=== PATIENT | male | born 1930 | race Caucasian/White ===

== ENCOUNTER 2018-02-02 19:17 | Emergency (ER) | payer MEDICARE, BC ==
[2018-02-02 21:24] LABS: ADD MAN DIFF? NO
[2018-02-02 21:28] LABS: BASOPHIL # 0.1 10^3/ul (0.0-0.1); BASOPHILS % 1.2 % (0.0-2.0); HEMATOCRIT 29.3 % (42.0-52.0); HEMOGLOBIN 9.4 g/dl (14.0-18.0); LYMPHOCYTES % 23.7 % (15.0-51.0); MEAN CORPUSCULAR HEMOGLOBIN 32.2 pg (29.0-33.0); MEAN CORPUSCULAR HGB CONC 32.1 g/dl (32.0-37.0); MEAN CORPUSCULAR VOLUME 100.3 fl (82.0-101.0); MEAN PLATELET VOLUME 9.9 fl (7.4-10.4); MONOCYTE # 0.7 10^3/ul (0.3-0.9); MONOCYTES % 17.3 % (0.0-11.0); NEUTROPHIL # 2.4 10^3/ul (1.6-7.5); NEUTROPHILS % 57.1 % (39.0-77.0); PLATELET COUNT 256 10^3/UL (140-415); RED BLOOD COUNT 2.92 10^6/ul (4.70-6.10); RED CELL DISTRIBUTION WIDTH 15.6 % (11.5-14.5)
[2018-02-02 21:28] LABS: WHITE BLOOD COUNT 4.2 10^3/ul (4.8-10.8)
[2018-02-02 21:46] LABS: ANION GAP 18 (8-16); BLOOD UREA NITROGEN 56 mg/dl (7-20); CARBON DIOXIDE 16 mmol/L (21-31); CHLORIDE 112 mmol/L (97-110); CREATININE 4.99 mg/dl (0.61-1.24); GLUCOSE 101 mg/dl (70-220); POTASSIUM 5.4 mmol/L (3.5-5.1); SODIUM 141 mmol/L (135-144)
[2018-02-02 21:58] LABS: TROPONIN-I 0.035 ng/ml (0.00-0.12)
[2018-02-02] MEDS: NA POLYST SULFON 15 GM/60 ML BTL PO (22:12)
== END 2018-02-02 22:19 | disposition home or self-care (01) ==
LOC: E/R 19:17
DX: N18.9 Chronic kidney disease, unspecified (principal); I12.9 Hypertensive chronic kidney disease with stage 1 through stage 4 chronic kidney disease, or unspecified chronic kidney disease; I25.10 Atherosclerotic heart disease of native coronary artery without angina pectoris; Z98.61 Coronary angioplasty status; Z87.891 Personal history of nicotine dependence
CPT/HCPCS: 80048; 84484; 85025; 93005; 99284-25

== ENCOUNTER 2018-03-09 13:02 | Emergency (ER) | payer MEDICARE, BC ==
[2018-03-09] MEDS: SODIUM CHLORIDE 0.9% 1L BAG IV* (13:33)
[2018-03-09 13:39] LABS: ADD MAN DIFF? NO
[2018-03-09 13:41] LABS: WHITE BLOOD COUNT 8.7 10^3/ul (4.8-10.8)
[2018-03-09 13:41] LABS: ABNORMAL IP MESSAGE 1; BASOPHILS % 0.5 % (0.0-2.0); EOSINOPHILS % 0.2 % (0.0-7.0); HEMATOCRIT 36.1 % (42.0-52.0); HEMOGLOBIN 11.7 g/dl (14.0-18.0); LYMPHOCYTES # 0.6 10^3/ul (0.8-2.9); LYMPHOCYTES % 6.5 % (15.0-51.0); MEAN CORPUSCULAR HEMOGLOBIN 32.5 pg (29.0-33.0); MEAN CORPUSCULAR HGB CONC 32.4 g/dl (32.0-37.0); MEAN CORPUSCULAR VOLUME 100.3 fl (82.0-101.0); MEAN PLATELET VOLUME 10.1 fl (7.4-10.4); MONOCYTE # 0.6 10^3/ul (0.3-0.9); MONOCYTES % 7.3 % (0.0-11.0); NEUTROPHIL # 7.3 10^3/ul (1.6-7.5); NEUTROPHILS % 84.2 % (39.0-77.0); PLATELET COUNT 226 10^3/UL (140-415); POSITIVE DIFF @See below; RED CELL DISTRIBUTION WIDTH 14.4 % (11.5-14.5)
[2018-03-09 13:59] LABS: ALANINE AMINOTRANSFERASE 26 IU/L (13-69); ALBUMIN 3.2 g/dl (3.3-4.9); ALKALINE PHOSPHATASE 78 IU/L (42-121); AMYLASE 40 U/L (11-123); ANION GAP 17 (8-16); ASPARTATE AMINO TRANSFERASE 18 IU/L (15-46); BILIRUBIN,INDIRECT 0.4 mg/dl (0-1.1); BILIRUBIN,TOTAL 0.4 mg/dl (0.2-1.3); BLOOD UREA NITROGEN 73 mg/dl (7-20); CALCIUM 8.5 mg/dl (8.4-10.2); CARBON DIOXIDE 19 mmol/L (21-31); CHLORIDE 113 mmol/L (97-110); CREATININE 3.94 mg/dl (0.61-1.24); GLUCOSE 117 mg/dl (70-220); LIPASE 75 U/L (23-300); POTASSIUM 5.8 mmol/L (3.5-5.1); SODIUM 143 mmol/L (135-144); TOTAL PROTEIN 6.4 g/dl (6.1-8.1)
[2018-03-09 13:59] LABS: LACTIC ACID 1.4 mmol/L (0.5-2.0)
[2018-03-09 14:10] LABS: INR 1.21; PARTIAL THROMBOPLASTIN TIME 25.3 Sec (25.0-35.0); PROTIME 15.5 Sec (11.9-14.9); PT RATIO 1.2; TROPONIN-I 0.041 ng/ml (0.000-0.120)
[2018-03-09] MEDS: SOD CHLORIDE 0.9% 1,000 ML IV (16:05)
[2018-03-09] MEDS: NA BICARBONATE 8.4% 50 ML SYG IV (16:06)
[2018-03-09] MEDS: CA CHLORIDE 10% 10 ML SYRINGE IV (16:06)
[2018-03-09 16:34] LABS: LACTIC ACID 0.9 mmol/L (0.5-2.0)
[2018-03-09 18:37] LABS: LACTIC ACID 1.4 mmol/L (0.5-2.0)
[2018-03-09 18:40] LABS: ALANINE AMINOTRANSFERASE 24 IU/L (13-69); ALBUMIN 2.9 g/dl (3.3-4.9); ALBUMIN/GLOBULIN RATIO 0.96; ALKALINE PHOSPHATASE 65 IU/L (42-121); ANION GAP 16 (8-16); ASPARTATE AMINO TRANSFERASE 18 IU/L (15-46); BILIRUBIN,INDIRECT 0.4 mg/dl (0-1.1); BILIRUBIN,TOTAL 0.4 mg/dl (0.2-1.3); BLOOD UREA NITROGEN 68 mg/dl (7-20); CALCIUM 8.5 mg/dl (8.4-10.2); CARBON DIOXIDE 19 mmol/L (21-31); CHLORIDE 115 mmol/L (97-110); CREATININE 3.72 mg/dl (0.61-1.24); GLUCOSE 120 mg/dl (70-220); POTASSIUM 5.4 mmol/L (3.5-5.1); SODIUM 145 mmol/L (135-144); TOTAL PROTEIN 5.9 g/dl (6.1-8.1)
== END 2018-03-09 19:38 | disposition home or self-care (01) ==
LOC: E/R 13:02
DX: E87.5 Hyperkalemia (principal); I12.9 Hypertensive chronic kidney disease with stage 1 through stage 4 chronic kidney disease, or unspecified chronic kidney disease; N18.9 Chronic kidney disease, unspecified; I25.10 Atherosclerotic heart disease of native coronary artery without angina pectoris; Z98.61 Coronary angioplasty status
CPT/HCPCS: 71045; 80053; 82150; 83605; 83690; 84484; 85025; 85610; 85730; 87040; 96374; 96375; 99285-25

== ENCOUNTER 2018-03-15 15:54 | Inpatient (IN) | payer MEDICARE, BC ==
[2018-03-15] MEDS: SODIUM CHLORIDE 0.9% 1L BAG IV* (16:40)
[2018-03-15 16:49] LABS: ADD MAN DIFF? NO
[2018-03-15 16:53] LABS: ABNORMAL IP MESSAGE 1; BASOPHILS % 0.4 % (0.0-2.0); EOSINOPHILS # 0.1 10^3/ul (0.0-0.5); EOSINOPHILS % 0.9 % (0.0-7.0); HEMATOCRIT 31.2 % (42.0-52.0); LYMPHOCYTES # 0.5 10^3/ul (0.8-2.9); LYMPHOCYTES % 8.7 % (15.0-51.0); MEAN CORPUSCULAR HEMOGLOBIN 32.6 pg (29.0-33.0); MEAN CORPUSCULAR HGB CONC 32.1 g/dl (32.0-37.0); MEAN CORPUSCULAR VOLUME 101.6 fl (82.0-101.0); MEAN PLATELET VOLUME 10.5 fl (7.4-10.4); MONOCYTE # 0.8 10^3/ul (0.3-0.9); MONOCYTES % 14.4 % (0.0-11.0); NEUTROPHIL # 4.2 10^3/ul (1.6-7.5); NEUTROPHILS % 74.9 % (39.0-77.0); PLATELET COUNT 225 10^3/UL (140-415); POSITIVE DIFF @See below; RED BLOOD COUNT 3.07 10^6/ul (4.70-6.10); RED CELL DISTRIBUTION WIDTH 14.6 % (11.5-14.5)
[2018-03-15 16:53] LABS: WHITE BLOOD COUNT 5.6 10^3/ul (4.8-10.8)
[2018-03-15] MEDS ORDERED: ONDANSETRON 4 MG INJ IV (17:00)
[2018-03-15 17:11] LABS: ALANINE AMINOTRANSFERASE 20 IU/L (13-69); ALBUMIN 3.1 g/dl (3.3-4.9); ALBUMIN/GLOBULIN RATIO 0.96; ALKALINE PHOSPHATASE 73 IU/L (42-121); ANION GAP 13 (8-16); ASPARTATE AMINO TRANSFERASE 16 IU/L (15-46); BILIRUBIN,INDIRECT 0.2 mg/dl (0-1.1); BILIRUBIN,TOTAL 0.2 mg/dl (0.2-1.3); BLOOD UREA NITROGEN 55 mg/dl (7-20); CALCIUM 8.7 mg/dl (8.4-10.2); CARBON DIOXIDE 20 mmol/L (21-31); CHLORIDE 115 mmol/L (97-110); CREATININE 3.51 mg/dl (0.61-1.24); GLUCOSE 96 mg/dl (70-220); POTASSIUM 5.4 mmol/L (3.5-5.1); SODIUM 143 mmol/L (135-144); TOTAL PROTEIN 6.3 g/dl (6.1-8.1)
[2018-03-15 17:12] LABS: LACTIC ACID 0.8 mmol/L (0.5-2.0)
[2018-03-15 17:13] LABS: PROTIME 15.4 Sec (11.9-14.9); PT RATIO 1.2
[2018-03-15 17:14] LABS: PARTIAL THROMBOPLASTIN TIME 26.5 Sec (25.0-35.0)
[2018-03-15 17:23] LABS: TROPONIN-I 0.025 ng/ml (0.000-0.120)
[2018-03-15 17:28] LABS: FREE T4 (FREE THYROXINE) 1.58 ng/dl (0.85-1.93)
[2018-03-15] MEDS: NA BICARBONATE 8.4% 50 ML SYG IV (17:51)
[2018-03-15] MEDS: LACTATED RINGER'S 1,000 ML IV (18:23)
[2018-03-15] MEDS: MYCOPHENOLATE 250 MG CAP PO (19:52)
[2018-03-15 21:23] LABS: LACTIC ACID 0.6 mmol/L (0.5-2.0)
[2018-03-15] MEDS: ATORVASTATIN 40 MG TAB PO (21:39)
[2018-03-15] MEDS: DIPHENHYDRAMINE 25 MG CAP PO (21:39)
[2018-03-16] MEDS: LACTATED RINGER'S 1,000 ML IV (05:04)
[2018-03-16 06:29] LABS: ADD MAN DIFF? NO
[2018-03-16 06:34] LABS: WHITE BLOOD COUNT 4.7 10^3/ul (4.8-10.8)
[2018-03-16 06:34] LABS: ABNORMAL IP MESSAGE 1; BASOPHILS % 0.2 % (0.0-2.0); EOSINOPHILS % 0.4 % (0.0-7.0); HEMOGLOBIN 9.1 g/dl (14.0-18.0); LYMPHOCYTES # 0.5 10^3/ul (0.8-2.9); LYMPHOCYTES % 10.7 % (15.0-51.0); MEAN CORPUSCULAR HEMOGLOBIN 31.6 pg (29.0-33.0); MEAN CORPUSCULAR HGB CONC 31.4 g/dl (32.0-37.0); MEAN CORPUSCULAR VOLUME 100.7 fl (82.0-101.0); MEAN PLATELET VOLUME 10.4 fl (7.4-10.4); MONOCYTE # 0.7 10^3/ul (0.3-0.9); MONOCYTES % 14.9 % (0.0-11.0); NEUTROPHIL # 3.5 10^3/ul (1.6-7.5); NEUTROPHILS % 73.6 % (39.0-77.0); PLATELET COUNT 236 10^3/UL (140-415); POSITIVE DIFF @See below; RED BLOOD COUNT 2.88 10^6/ul (4.70-6.10); RED CELL DISTRIBUTION WIDTH 14.7 % (11.5-14.5)
[2018-03-16] MEDS: PANTOPRAZOLE (EC) 40 MG TAB PO (06:37)
[2018-03-16 06:51] LABS: LACTIC ACID 0.7 mmol/L (0.5-2.0)
[2018-03-16 06:53] LABS: ANION GAP 14 (8-16); BLOOD UREA NITROGEN 47 mg/dl (7-20); CALCIUM 8.1 mg/dl (8.4-10.2); CARBON DIOXIDE 17 mmol/L (21-31); CHLORIDE 117 mmol/L (97-110); CREATININE 3.18 mg/dl (0.61-1.24); GLUCOSE 88 mg/dl (70-220); SODIUM 143 mmol/L (135-144)
[2018-03-16 06:56] LABS: POTASSIUM 5.4 mmol/L (3.5-5.1)
[2018-03-16] MEDS: ISOSORBIDE MONONITRATE(SR)30 MG TAB PO (09:06)
[2018-03-16] MEDS: predniSONE 5 MG TAB PO (09:07)
[2018-03-16] MEDS: MYCOPHENOLATE 250 MG CAP PO ×2 (09:07→17:51)
[2018-03-16] MEDS: SOD CHLORIDE 0.45% 1,000 ML IV (09:39)
[2018-03-16] MEDS ORDERED: NA POLYST SULFON 15 GM/60 ML BTL PO (10:00)
[2018-03-16] MEDS: SODIUM BICARBONATE (IV ADD) 100 MEQ in DEXTROSE 5% 900 ML IV ×2 (12:17→21:38)
[2018-03-16] MEDS ORDERED: PENDING SANTYL ORDER FOR WOUND CARE XX (16:30)
[2018-03-16] MEDS: ATORVASTATIN 40 MG TAB PO (20:36)
[2018-03-17 05:44] LABS: ADD MAN DIFF? NO; BASOPHILS % 0.5 % (0.0-2.0); EOSINOPHILS % 0.9 % (0.0-7.0); HEMATOCRIT 26.1 % (42.0-52.0); HEMOGLOBIN 8.4 g/dl (14.0-18.0); LYMPHOCYTES # 0.7 10^3/ul (0.8-2.9); LYMPHOCYTES % 15.6 % (15.0-51.0); MEAN CORPUSCULAR HEMOGLOBIN 32.2 pg (29.0-33.0); MEAN CORPUSCULAR HGB CONC 32.2 g/dl (32.0-37.0); MEAN PLATELET VOLUME 10.4 fl (7.4-10.4); MONOCYTE # 0.7 10^3/ul (0.3-0.9); MONOCYTES % 15.9 % (0.0-11.0); NEUTROPHIL # 2.9 10^3/ul (1.6-7.5); NEUTROPHILS % 66.6 % (39.0-77.0); PLATELET COUNT 190 10^3/UL (140-415); RED BLOOD COUNT 2.61 10^6/ul (4.70-6.10); RED CELL DISTRIBUTION WIDTH 14.6 % (11.5-14.5)
[2018-03-17 05:44] LABS: WHITE BLOOD COUNT 4.4 10^3/ul (4.8-10.8)
[2018-03-17 06:23] LABS: ANION GAP 6 (8-16); BLOOD UREA NITROGEN 44 mg/dl (7-20); CALCIUM 7.9 mg/dl (8.4-10.2); CARBON DIOXIDE 21 mmol/L (21-31); CHLORIDE 116 mmol/L (97-110); CREATININE 3.17 mg/dl (0.61-1.24); GLUCOSE 100 mg/dl (70-220); PHOSPHORUS 3.2 mg/dl (2.5-4.9); POTASSIUM 4.7 mmol/L (3.5-5.1); SODIUM 138 mmol/L (135-144)
[2018-03-17 06:46] LABS: PROTEIN, TOTAL 5.2 g/dL (6.1-8.1)
[2018-03-17] MEDS: SODIUM BICARBONATE (IV ADD) 100 MEQ in DEXTROSE 5% 900 ML IV ×2 (07:00→18:54)
[2018-03-17] MEDS: PANTOPRAZOLE (EC) 40 MG TAB PO (07:07)
[2018-03-17 08:27] LABS: IRON 33 ug/dl (35-150)
[2018-03-17] MEDS ORDERED: HYDROCODONE/APAP (5/325) TAB PO (08:30)
[2018-03-17] MEDS ORDERED: DIPHENHYDRAMINE 50 MG CAP PO (08:30)
[2018-03-17] MEDS ORDERED: LOPERAMIDE 2 MG CAP PO (08:30)
[2018-03-17 08:36] LABS: % IRON SATURATION 18 % SAT (22-52); TOTAL IRON BINDING CAPACITY 187 ug/dl (241-421)
[2018-03-17] MEDS: MYCOPHENOLATE 250 MG CAP PO ×2 (08:49→17:49)
[2018-03-17] MEDS: predniSONE 5 MG TAB PO (08:49)
[2018-03-17] MEDS: ISOSORBIDE MONONITRATE(SR)30 MG TAB PO (08:50)
[2018-03-17] MEDS: DIPHENHYDRAMINE 25 MG CAP PO ×2 (09:44→20:50)
[2018-03-17 17:16] LABS: ALBUMIN 2.7 g/dL (3.8-4.8); ALPHA-1-GLOBULINS 0.3 g/dL (0.2-0.3); ALPHA-2-GLOBULINS 0.7 g/dL (0.5-0.9); BETA 2 GLOBULINS 0.3 g/dL (0.2-0.5); BETA GLOBULINS 0.3 g/dL (0.4-0.6); GAMMA GLOBULINS 0.9 g/dL (0.8-1.7)
[2018-03-17] MEDS: ATORVASTATIN 40 MG TAB PO (20:21)
[2018-03-18] MEDS: SODIUM BICARBONATE (IV ADD) 100 MEQ in DEXTROSE 5% 900 ML IV (04:46)
[2018-03-18 05:12] LABS: ADD MAN DIFF? NO
[2018-03-18 05:19] LABS: BASOPHILS % 0.4 % (0.0-2.0); EOSINOPHILS % 0.9 % (0.0-7.0); HEMATOCRIT 27.3 % (42.0-52.0); HEMOGLOBIN 8.7 g/dl (14.0-18.0); LYMPHOCYTES # 0.8 10^3/ul (0.8-2.9); LYMPHOCYTES % 16.4 % (15.0-51.0); MEAN CORPUSCULAR HEMOGLOBIN 31.5 pg (29.0-33.0); MEAN CORPUSCULAR HGB CONC 31.9 g/dl (32.0-37.0); MEAN CORPUSCULAR VOLUME 98.9 fl (82.0-101.0); MEAN PLATELET VOLUME 10.5 fl (7.4-10.4); MONOCYTE # 0.8 10^3/ul (0.3-0.9); NEUTROPHIL # 3.1 10^3/ul (1.6-7.5); NEUTROPHILS % 65.9 % (39.0-77.0); PLATELET COUNT 205 10^3/UL (140-415); RED BLOOD COUNT 2.76 10^6/ul (4.70-6.10); RED CELL DISTRIBUTION WIDTH 14.4 % (11.5-14.5)
[2018-03-18 05:19] LABS: WHITE BLOOD COUNT 4.7 10^3/ul (4.8-10.8)
[2018-03-18 05:42] LABS: ANION GAP 10 (8-16); BLOOD UREA NITROGEN 41 mg/dl (7-20); CALCIUM 7.7 mg/dl (8.4-10.2); CARBON DIOXIDE 24 mmol/L (21-31); CHLORIDE 109 mmol/L (97-110); GLUCOSE 118 mg/dl (70-220); POTASSIUM 4.6 mmol/L (3.5-5.1); SODIUM 138 mmol/L (135-144)
[2018-03-18] MEDS: PANTOPRAZOLE (EC) 40 MG TAB PO (06:30)
[2018-03-18] MEDS: ISOSORBIDE MONONITRATE(SR)30 MG TAB PO (09:00)
[2018-03-18] MEDS: DIPHENHYDRAMINE 25 MG CAP PO (09:01)
[2018-03-18] MEDS: predniSONE 5 MG TAB PO (09:01)
[2018-03-18] MEDS: MYCOPHENOLATE 250 MG CAP PO ×2 (09:01→17:57)
[2018-03-18] MEDS: METHYLPREDNISOLONE 40 MG INJ IV (09:01)
[2018-03-18] MEDS: DEXTROSE 5%-0.9% NACL 1,000 ML IV ×2 (09:02→21:12)
[2018-03-18] MEDS: SOD FERRIC GLUC COMPLX 125 MG in SOD CHLORIDE 0.9% 100 ML IVPB (09:12)
[2018-03-18] MEDS: EPOETIN 4000 UNITS/ML (NON ESRD/NON ONCOLOGY) SC (10:06)
[2018-03-18] MEDS: ATORVASTATIN 40 MG TAB PO (21:11)
[2018-03-19 05:43] LABS: ADD MAN DIFF? NO
[2018-03-19 05:50] LABS: ABNORMAL IP MESSAGE 1; BASOPHILS % 0.1 % (0.0-2.0); HEMATOCRIT 28.1 % (42.0-52.0); HEMOGLOBIN 8.9 g/dl (14.0-18.0); LYMPHOCYTES # 0.6 10^3/ul (0.8-2.9); LYMPHOCYTES % 7.7 % (15.0-51.0); MEAN CORPUSCULAR HEMOGLOBIN 31.9 pg (29.0-33.0); MEAN CORPUSCULAR HGB CONC 31.7 g/dl (32.0-37.0); MEAN CORPUSCULAR VOLUME 100.7 fl (82.0-101.0); MEAN PLATELET VOLUME 10.6 fl (7.4-10.4); MONOCYTE # 0.9 10^3/ul (0.3-0.9); MONOCYTES % 12.6 % (0.0-11.0); NEUTROPHIL # 5.8 10^3/ul (1.6-7.5); NEUTROPHILS % 79.1 % (39.0-77.0); PLATELET COUNT 230 10^3/UL (140-415); POSITIVE DIFF @See below; RED BLOOD COUNT 2.79 10^6/ul (4.70-6.10); RED CELL DISTRIBUTION WIDTH 14.2 % (11.5-14.5)
[2018-03-19 05:50] LABS: WHITE BLOOD COUNT 7.3 10^3/ul (4.8-10.8)
[2018-03-19 06:19] LABS: ANION GAP 10 (8-16); BLOOD UREA NITROGEN 37 mg/dl (7-20); CALCIUM 7.8 mg/dl (8.4-10.2); CARBON DIOXIDE 23 mmol/L (21-31); CHLORIDE 112 mmol/L (97-110); GLUCOSE 131 mg/dl (70-220); POTASSIUM 4.9 mmol/L (3.5-5.1); SODIUM 140 mmol/L (135-144)
[2018-03-19] MEDS: PANTOPRAZOLE (EC) 40 MG TAB PO (06:38)
[2018-03-19] MEDS: MYCOPHENOLATE 250 MG CAP PO ×2 (08:50→18:04)
[2018-03-19] MEDS: ISOSORBIDE MONONITRATE(SR)30 MG TAB PO (08:51)
[2018-03-19] MEDS: predniSONE 5 MG TAB PO (08:51)
[2018-03-19] MEDS: SOD FERRIC GLUC COMPLX 125 MG in SOD CHLORIDE 0.9% 100 ML IVPB (16:36)
[2018-03-19] MEDS: ATORVASTATIN 40 MG TAB PO (21:48)
[2018-03-20 05:00] LABS: ADD MAN DIFF? NO
[2018-03-20 05:04] LABS: BASOPHILS % 0.4 % (0.0-2.0); EOSINOPHILS % 0.7 % (0.0-7.0); HEMATOCRIT 26.6 % (42.0-52.0); HEMOGLOBIN 8.5 g/dl (14.0-18.0); LYMPHOCYTES % 18.2 % (15.0-51.0); MEAN CORPUSCULAR HEMOGLOBIN 32.2 pg (29.0-33.0); MEAN CORPUSCULAR VOLUME 100.8 fl (82.0-101.0); MEAN PLATELET VOLUME 10.5 fl (7.4-10.4); MONOCYTE # 0.9 10^3/ul (0.3-0.9); MONOCYTES % 15.9 % (0.0-11.0); NEUTROPHIL # 3.6 10^3/ul (1.6-7.5); NEUTROPHILS % 63.7 % (39.0-77.0); NUCLEATED RED BLOOD CELLS% 0.4 /100WBC (0.0-0.0); PLATELET COUNT 227 10^3/UL (140-415); RED BLOOD COUNT 2.64 10^6/ul (4.70-6.10); RED CELL DISTRIBUTION WIDTH 14.5 % (11.5-14.5)
[2018-03-20 05:04] LABS: WHITE BLOOD COUNT 5.7 10^3/ul (4.8-10.8)
[2018-03-20 05:30] LABS: ALANINE AMINOTRANSFERASE 29 IU/L (13-69); ALBUMIN 2.5 g/dl (3.3-4.9); ALBUMIN/GLOBULIN RATIO 0.92; ALKALINE PHOSPHATASE 65 IU/L (42-121); ANION GAP 9 (8-16); ASPARTATE AMINO TRANSFERASE 18 IU/L (15-46); BILIRUBIN,INDIRECT 0.1 mg/dl (0-1.1); BILIRUBIN,TOTAL 0.1 mg/dl (0.2-1.3); BLOOD UREA NITROGEN 38 mg/dl (7-20); CALCIUM 7.9 mg/dl (8.4-10.2); CARBON DIOXIDE 23 mmol/L (21-31); CHLORIDE 113 mmol/L (97-110); CREATININE 2.65 mg/dl (0.61-1.24); GLUCOSE 94 mg/dl (70-220); POTASSIUM 4.7 mmol/L (3.5-5.1); SODIUM 140 mmol/L (135-144); TOTAL PROTEIN 5.2 g/dl (6.1-8.1)
[2018-03-20] MEDS: PANTOPRAZOLE (EC) 40 MG TAB PO (06:03)
[2018-03-20] MEDS: MYCOPHENOLATE 250 MG CAP PO ×2 (09:03→21:57)
[2018-03-20] MEDS: predniSONE 5 MG TAB PO (09:04)
[2018-03-20] MEDS: ISOSORBIDE MONONITRATE(SR)30 MG TAB PO (09:04)
[2018-03-20 14:35] LABS: ADD UMIC YES; UR ASCORBIC ACID NEGATIVE (NEGATIVE); UR BILIRUBIN (Dip) NEGATIVE (NEGATIVE); UR BLOOD (Dip) 1+ mg/dL (NEGATIVE); UR CLARITY CLEAR (CLEAR); UR COLOR STRAW (YELLOW); UR GLUCOSE (Dip) 1+ mg/dL (NEGATIVE); UR KETONES (Dip) NEGATIVE (NEGATIVE); UR LEUKOCYTE ESTERASE (Dip) TRACE Leu/ul (NEGATIVE); UR NITRITE (Dip) NEGATIVE (NEGATIVE); UR RBC 5 /HPF (0-5); UR SPECIFIC GRAVITY (Dip) 1.011 (1.003-1.030); UR TOTAL PROTEIN (Dip) NEGATIVE (NEGATIVE); UR UROBILINOGEN (Dip) NEGATIVE (NEGATIVE); UR WBC 7 /HPF (0-5)
[2018-03-20] MEDS: SOD FERRIC GLUC COMPLX 125 MG in SOD CHLORIDE 0.9% 100 ML IVPB (16:56)
[2018-03-20] MEDS: EPOETIN 10000 UNITS/1 ML INJ (ESRD) SC (17:01)
[2018-03-20] MEDS: ATORVASTATIN 40 MG TAB PO (21:57)
[2018-03-20] MEDS: DIPHENHYDRAMINE 25 MG CAP PO (21:58)
[2018-03-21 05:25] LABS: ADD MAN DIFF? NO
[2018-03-21 05:45] LABS: WHITE BLOOD COUNT 5.3 10^3/ul (4.8-10.8)
[2018-03-21 05:45] LABS: BASOPHILS % 0.8 % (0.0-2.0); EOSINOPHILS # 0.1 10^3/ul (0.0-0.5); EOSINOPHILS % 1.7 % (0.0-7.0); HEMATOCRIT 27.3 % (42.0-52.0); HEMOGLOBIN 8.7 g/dl (14.0-18.0); LYMPHOCYTES # 1.2 10^3/ul (0.8-2.9); LYMPHOCYTES % 22.6 % (15.0-51.0); MEAN CORPUSCULAR HEMOGLOBIN 32.3 pg (29.0-33.0); MEAN CORPUSCULAR HGB CONC 31.9 g/dl (32.0-37.0); MEAN CORPUSCULAR VOLUME 101.5 fl (82.0-101.0); MEAN PLATELET VOLUME 10.6 fl (7.4-10.4); MONOCYTE # 0.9 10^3/ul (0.3-0.9); MONOCYTES % 16.2 % (0.0-11.0); NEUTROPHILS % 57.4 % (39.0-77.0); NUCLEATED RED BLOOD CELLS% 0.6 /100WBC (0.0-0.0); PLATELET COUNT 251 10^3/UL (140-415); RED BLOOD COUNT 2.69 10^6/ul (4.70-6.10); RED CELL DISTRIBUTION WIDTH 14.6 % (11.5-14.5)
[2018-03-21] MEDS: PANTOPRAZOLE (EC) 40 MG TAB PO (05:55)
[2018-03-21 05:56] LABS: ALANINE AMINOTRANSFERASE 31 IU/L (13-69); ALBUMIN 2.5 g/dl (3.3-4.9); ALBUMIN/GLOBULIN RATIO 0.92; ALKALINE PHOSPHATASE 68 IU/L (42-121); ANION GAP 10 (8-16); ASPARTATE AMINO TRANSFERASE 16 IU/L (15-46); BILIRUBIN,INDIRECT 0.2 mg/dl (0-1.1); BILIRUBIN,TOTAL 0.2 mg/dl (0.2-1.3); BLOOD UREA NITROGEN 38 mg/dl (7-20); CARBON DIOXIDE 21 mmol/L (21-31); CHLORIDE 115 mmol/L (97-110); CREATININE 2.82 mg/dl (0.61-1.24); GLUCOSE 90 mg/dl (70-220); POTASSIUM 4.6 mmol/L (3.5-5.1); SODIUM 141 mmol/L (135-144); TOTAL PROTEIN 5.2 g/dl (6.1-8.1)
[2018-03-21] MEDS: ISOSORBIDE MONONITRATE(SR)30 MG TAB PO (09:14)
[2018-03-21] MEDS: predniSONE 5 MG TAB PO (09:15)
[2018-03-21] MEDS: MYCOPHENOLATE 250 MG CAP PO ×2 (11:41→20:43)
[2018-03-21] MEDS: SOD FERRIC GLUC COMPLX 125 MG in SOD CHLORIDE 0.9% 100 ML IVPB (16:35)
[2018-03-21] MEDS ORDERED: MYCOPHENOLATE 250 MG CAP PO (19:55)
[2018-03-21] MEDS: ATORVASTATIN 40 MG TAB PO (20:43)
[2018-03-22 05:13] LABS: ADD MAN DIFF? NO; BASOPHILS % 0.8 % (0.0-2.0); EOSINOPHILS # 0.1 10^3/ul (0.0-0.5); EOSINOPHILS % 1.5 % (0.0-7.0); HEMATOCRIT 27.4 % (42.0-52.0); HEMOGLOBIN 8.8 g/dl (14.0-18.0); LYMPHOCYTES % 18.6 % (15.0-51.0); MEAN CORPUSCULAR HEMOGLOBIN 32.2 pg (29.0-33.0); MEAN CORPUSCULAR HGB CONC 32.1 g/dl (32.0-37.0); MEAN CORPUSCULAR VOLUME 100.4 fl (82.0-101.0); MEAN PLATELET VOLUME 10.3 fl (7.4-10.4); MONOCYTES % 17.9 % (0.0-11.0); NEUTROPHIL # 3.2 10^3/ul (1.6-7.5); NEUTROPHILS % 60.3 % (39.0-77.0); NUCLEATED RED BLOOD CELLS% 0.6 /100WBC (0.0-0.0); PLATELET COUNT 222 10^3/UL (140-415); RED BLOOD COUNT 2.73 10^6/ul (4.70-6.10); RED CELL DISTRIBUTION WIDTH 14.6 % (11.5-14.5)
[2018-03-22 05:13] LABS: WHITE BLOOD COUNT 5.3 10^3/ul (4.8-10.8)
[2018-03-22 05:34] LABS: ANION GAP 10 (8-16); BLOOD UREA NITROGEN 43 mg/dl (7-20); CARBON DIOXIDE 23 mmol/L (21-31); CHLORIDE 113 mmol/L (97-110); CREATININE 2.77 mg/dl (0.61-1.24); GLUCOSE 98 mg/dl (70-220); POTASSIUM 4.7 mmol/L (3.5-5.1); SODIUM 141 mmol/L (135-144)
[2018-03-22] MEDS: PANTOPRAZOLE (EC) 40 MG TAB PO (07:32)
[2018-03-22] MEDS: predniSONE 5 MG TAB PO (08:54)
[2018-03-22] MEDS: ISOSORBIDE MONONITRATE(SR)30 MG TAB PO (08:55)
[2018-03-22] MEDS: MYCOPHENOLATE 250 MG CAP PO ×2 (12:07→21:24)
[2018-03-22] MEDS: SOD FERRIC GLUC COMPLX 125 MG in SOD CHLORIDE 0.9% 100 ML IVPB (17:08)
[2018-03-22] MEDS: EPOETIN 10000 UNITS/1 ML INJ (ESRD) SC (17:09)
[2018-03-22] MEDS: ATORVASTATIN 40 MG TAB PO (21:24)
[2018-03-23] MEDS: PANTOPRAZOLE (EC) 40 MG TAB PO (06:27)
[2018-03-23] MEDS: predniSONE 5 MG TAB PO (08:44)
[2018-03-23] MEDS: ISOSORBIDE MONONITRATE(SR)30 MG TAB PO (08:45)
[2018-03-23] MEDS: MYCOPHENOLATE 250 MG CAP PO ×3 (11:53→22:23)
[2018-03-23] MEDS: SOD FERRIC GLUC COMPLX 125 MG in SOD CHLORIDE 0.9% 100 ML IVPB (16:49)
[2018-03-23] MEDS: ATORVASTATIN 40 MG TAB PO (21:23)
[2018-03-24 05:17] LABS: ADD MAN DIFF? NO
[2018-03-24 05:23] LABS: WHITE BLOOD COUNT 5.6 10^3/ul (4.8-10.8)
[2018-03-24 05:23] LABS: BASOPHILS % 0.5 % (0.0-2.0); EOSINOPHILS # 0.1 10^3/ul (0.0-0.5); EOSINOPHILS % 0.9 % (0.0-7.0); HEMATOCRIT 28.4 % (42.0-52.0); LYMPHOCYTES # 1.3 10^3/ul (0.8-2.9); LYMPHOCYTES % 23.2 % (15.0-51.0); MEAN CORPUSCULAR HEMOGLOBIN 32.4 pg (29.0-33.0); MEAN CORPUSCULAR HGB CONC 31.7 g/dl (32.0-37.0); MEAN CORPUSCULAR VOLUME 102.2 fl (82.0-101.0); MEAN PLATELET VOLUME 9.8 fl (7.4-10.4); MONOCYTE # 1.1 10^3/ul (0.3-0.9); MONOCYTES % 20.1 % (0.0-11.0); NEUTROPHILS % 54.1 % (39.0-77.0); PLATELET COUNT 277 10^3/UL (140-415); RED BLOOD COUNT 2.78 10^6/ul (4.70-6.10); RED CELL DISTRIBUTION WIDTH 15.1 % (11.5-14.5)
[2018-03-24 06:02] LABS: ANION GAP 8 (8-16); BLOOD UREA NITROGEN 47 mg/dl (7-20); CALCIUM 7.8 mg/dl (8.4-10.2); CARBON DIOXIDE 24 mmol/L (21-31); CHLORIDE 114 mmol/L (97-110); CREATININE 2.75 mg/dl (0.61-1.24); GLUCOSE 94 mg/dl (70-220); POTASSIUM 4.5 mmol/L (3.5-5.1); SODIUM 141 mmol/L (135-144)
[2018-03-24] MEDS: ISOSORBIDE MONONITRATE(SR)30 MG TAB PO (10:21)
[2018-03-24] MEDS: predniSONE 5 MG TAB PO (10:21)
[2018-03-24] MEDS: PANTOPRAZOLE (EC) 40 MG TAB PO (10:21)
[2018-03-24] MEDS: MYCOPHENOLATE 250 MG CAP PO ×2 (13:03→20:30)
[2018-03-24] MEDS: TERBINAFINE 250 MG TAB PO ×2 (13:08→20:38)
[2018-03-24] MEDS: EPOETIN 10000 UNITS/1 ML INJ (ESRD) SC (18:03)
[2018-03-24] MEDS: ATORVASTATIN 40 MG TAB PO (20:37)
[2018-03-25] MEDS: PANTOPRAZOLE (EC) 40 MG TAB PO (06:27)
[2018-03-25] MEDS ORDERED: CEFOTAXIME 1 GM/50 ML (PMX) 50 ML IVPB (09:00)
[2018-03-25] MEDS: CIPROFLOXACIN 250 MG TAB PO (09:45)
[2018-03-25] MEDS: TERBINAFINE 250 MG TAB PO ×2 (09:45→21:56)
[2018-03-25] MEDS: predniSONE 5 MG TAB PO (09:45)
[2018-03-25] MEDS: ISOSORBIDE MONONITRATE(SR)30 MG TAB PO (09:46)
[2018-03-25] MEDS: MYCOPHENOLATE 250 MG CAP PO ×4 (11:00→23:24)
[2018-03-25] MEDS: ATORVASTATIN 40 MG TAB PO (21:57)
[2018-03-26] MEDS: CIPROFLOXACIN 500 MG TAB PO (05:14)
[2018-03-26 05:15] LABS: ADD MAN DIFF? NO
[2018-03-26 05:21] LABS: WHITE BLOOD COUNT 5.8 10^3/ul (4.8-10.8)
[2018-03-26 05:21] LABS: BASOPHILS % 0.7 % (0.0-2.0); EOSINOPHILS % 0.5 % (0.0-7.0); HEMATOCRIT 27.7 % (42.0-52.0); HEMOGLOBIN 8.7 g/dl (14.0-18.0); LYMPHOCYTES # 1.4 10^3/ul (0.8-2.9); MEAN CORPUSCULAR HEMOGLOBIN 31.8 pg (29.0-33.0); MEAN CORPUSCULAR HGB CONC 31.4 g/dl (32.0-37.0); MEAN CORPUSCULAR VOLUME 101.1 fl (82.0-101.0); MEAN PLATELET VOLUME 10.1 fl (7.4-10.4); MONOCYTE # 1.3 10^3/ul (0.3-0.9); MONOCYTES % 23.3 % (0.0-11.0); NEUTROPHIL # 2.9 10^3/ul (1.6-7.5); NEUTROPHILS % 49.6 % (39.0-77.0); NUCLEATED RED BLOOD CELLS% 0.3 /100WBC (0.0-0.0); PLATELET COUNT 259 10^3/UL (140-415); RED BLOOD COUNT 2.74 10^6/ul (4.70-6.10); RED CELL DISTRIBUTION WIDTH 15.6 % (11.5-14.5)
[2018-03-26 05:44] LABS: ALANINE AMINOTRANSFERASE 19 IU/L (13-69); ALBUMIN 2.6 g/dl (3.3-4.9); ALBUMIN/GLOBULIN RATIO 0.86; ALKALINE PHOSPHATASE 66 IU/L (42-121); ANION GAP 10 (8-16); ASPARTATE AMINO TRANSFERASE 11 IU/L (15-46); BILIRUBIN,INDIRECT 0.3 mg/dl (0-1.1); BILIRUBIN,TOTAL 0.3 mg/dl (0.2-1.3); BLOOD UREA NITROGEN 40 mg/dl (7-20); CARBON DIOXIDE 22 mmol/L (21-31); CHLORIDE 113 mmol/L (97-110); CREATININE 2.92 mg/dl (0.61-1.24); GLUCOSE 95 mg/dl (70-220); POTASSIUM 4.3 mmol/L (3.5-5.1); SODIUM 141 mmol/L (135-144); TOTAL PROTEIN 5.6 g/dl (6.1-8.1)
[2018-03-26] MEDS: PANTOPRAZOLE (EC) 40 MG TAB PO ×2 (07:20→09:00)
[2018-03-26] MEDS: TERBINAFINE 250 MG TAB PO ×2 (08:59→21:56)
[2018-03-26] MEDS: predniSONE 5 MG TAB PO (08:59)
[2018-03-26] MEDS: ISOSORBIDE MONONITRATE(SR)30 MG TAB PO (09:00)
[2018-03-26] MEDS: MYCOPHENOLATE 250 MG CAP PO ×3 (11:41→21:56)
[2018-03-26] MEDS: ATORVASTATIN 40 MG TAB PO (21:56)
[2018-03-27] MEDS: CIPROFLOXACIN 500 MG TAB PO (06:30)
[2018-03-27] MEDS: PANTOPRAZOLE (EC) 40 MG TAB PO (07:45)
[2018-03-27] MEDS: VALACYCLOVIR 500 MG TAB PO ×2 (09:12→20:55)
[2018-03-27] MEDS: predniSONE 5 MG TAB PO (09:17)
[2018-03-27] MEDS: ISOSORBIDE MONONITRATE(SR)30 MG TAB PO (09:17)
[2018-03-27] MEDS: TERBINAFINE 250 MG TAB PO ×2 (09:19→21:59)
[2018-03-27] MEDS: MYCOPHENOLATE 250 MG CAP PO ×2 (11:31→21:59)
[2018-03-27 13:13] LABS: HEPATITIS B SURFACE ANTIGEN NEGATIVE (NEGATIVE)
[2018-03-27 13:30] LABS: HEPATITIS B SURFACE ANTIBODY NEGATIVE (NEGATIVE)
[2018-03-27] MEDS: EPOETIN 10000 UNITS/1 ML INJ (ESRD) SC (18:02)
[2018-03-27] MEDS: ATORVASTATIN 40 MG TAB PO (20:55)
[2018-03-28] MEDS: CIPROFLOXACIN 500 MG TAB PO (06:11)
[2018-03-28] MEDS: PANTOPRAZOLE (EC) 40 MG TAB PO (07:20)
[2018-03-28] MEDS: TERBINAFINE 250 MG TAB PO (09:38)
[2018-03-28] MEDS: predniSONE 5 MG TAB PO (09:40)
[2018-03-28] MEDS: VALACYCLOVIR 500 MG TAB PO (09:40)
[2018-03-28] MEDS: ISOSORBIDE MONONITRATE(SR)30 MG TAB PO (09:43)
[2018-03-28] MEDS: MYCOPHENOLATE 250 MG CAP PO (11:24)
[2018-03-28 11:32] LABS: HSV 2 IGG ANTIBODY <0.90 index
[2018-03-29] MEDS ORDERED: FUROSEMIDE 40 MG TAB PO (07:20)
== END 2018-03-28 18:05 | disposition home health service (06) | DRG 607 ==
LOC: E/R 15:54 → MS1 16:58
DX: L13.0 Dermatitis herpetiformis (principal); E46 Unspecified protein-calorie malnutrition; N17.9 Acute kidney failure, unspecified; N39.0 Urinary tract infection, site not specified; C68.0 Malignant neoplasm of urethra; D62 Acute posthemorrhagic anemia; E86.0 Dehydration; C67.9 Malignant neoplasm of bladder, unspecified; I12.9 Hypertensive chronic kidney disease with stage 1 through stage 4 chronic kidney disease, or unspecified chronic kidney disease; E87.5 Hyperkalemia; N18.3 Chronic kidney disease, stage 3 (moderate); D63.1 Anemia in chronic kidney disease; D63.8 Anemia in other chronic diseases classified elsewhere; E78.5 Hyperlipidemia, unspecified; I25.10 Atherosclerotic heart disease of native coronary artery without angina pectoris; R23.8 Other skin changes; L85.9 Epidermal thickening, unspecified; L40.50 Arthropathic psoriasis, unspecified; B96.1 Klebsiella pneumoniae [K. pneumoniae] as the cause of diseases classified elsewhere; K12.1 Other forms of stomatitis; I25.5 Ischemic cardiomyopathy; L53.8 Other specified erythematous conditions; Z68.27 Body mass index [BMI] 27.0-27.9, adult; Z93.3 Colostomy status; Z87.891 Personal history of nicotine dependence; Z95.5 Presence of coronary angioplasty implant and graft; Z85.820 Personal history of malignant melanoma of skin
CPT/HCPCS: 71045; 80048; 80053; 81001; 82728; 83540; 83605; 84100; 84155; 84165; 84439; 84443; 84484; 85025; 85610; 85730; 86692; 86706; 87040; 87086; 87340; 93005; 93306; 96361; 96374; 97110; 97116; 97162; 97530; 99285-25

== ENCOUNTER 2019-04-20 10:33 | Inpatient (IN) | payer MEDICARE, BC ==
[2019-04-20] MEDS: ACETAMINOPHEN 325 MG TAB PO (10:55)
[2019-04-20 11:06] LABS: ADD MAN DIFF? NO
[2019-04-20] MEDS: SODIUM CHLORIDE 0.9% 1L BAG IV* (11:07)
[2019-04-20] MEDS: CEFEPIME 2GM/50 ML (PMX) 50 ML IVPB (11:07)
[2019-04-20 11:08] LABS: ABNORMAL IP MESSAGE 1; BASOPHILS % 0.4 % (0.0-2.0); EOSINOPHILS % 0.4 % (0.0-7.0); HEMATOCRIT 33.4 % (42.0-52.0); HEMOGLOBIN 10.1 g/dl (14.0-18.0); LYMPHOCYTES # 0.3 10^3/ul (0.8-2.9); LYMPHOCYTES % 5.5 % (15.0-51.0); MEAN CORPUSCULAR HEMOGLOBIN 31.8 pg (29.0-33.0); MEAN CORPUSCULAR HGB CONC 30.2 g/dl (32.0-37.0); MEAN PLATELET VOLUME 9.6 fl (7.4-10.4); MONOCYTES % 0.9 % (0.0-11.0); NEUTROPHIL # 4.3 10^3/ul (1.6-7.5); NEUTROPHILS % 92.2 % (39.0-77.0); NUCLEATED RED BLOOD CELLS% 0.4 /100WBC (0.0-0.0); PLATELET COUNT 327 10^3/UL (140-415); POSITIVE DIFF @See below; RED BLOOD COUNT 3.18 10^6/ul (4.70-6.10); RED CELL DISTRIBUTION WIDTH 17.2 % (11.5-14.5)
[2019-04-20 11:08] LABS: WHITE BLOOD COUNT 4.7 10^3/ul (4.8-10.8)
[2019-04-20 11:32] LABS: ALANINE AMINOTRANSFERASE 10 IU/L (13-69); ALBUMIN 3.8 g/dl (3.3-4.9); ALBUMIN/GLOBULIN RATIO 1.22; ALKALINE PHOSPHATASE 59 IU/L (42-121); AMYLASE 99 U/L (11-123); ANION GAP 13 (5-13); ASPARTATE AMINO TRANSFERASE 21 IU/L (15-46); BILIRUBIN,INDIRECT 0.5 mg/dl (0-1.1); BILIRUBIN,TOTAL 0.5 mg/dl (0.2-1.3); BLOOD UREA NITROGEN 44 mg/dl (7-20); CALCIUM 8.9 mg/dl (8.4-10.2); CARBON DIOXIDE 16 mmol/L (21-31); CHLORIDE 113 mmol/L (97-110); CREATININE 3.48 mg/dl (0.61-1.24); GLUCOSE 129 mg/dl (70-220); INR 1.25; LIPASE 116 U/L (23-300); PARTIAL THROMBOPLASTIN TIME 20.7 Sec (23.0-35.0); POTASSIUM 4.5 mmol/L (3.5-5.1); PROTIME 15.8 Sec (11.9-14.9); PT RATIO 1.2; SODIUM 142 mmol/L (135-144); TOTAL PROTEIN 6.9 g/dl (6.1-8.1)
[2019-04-20] MEDS: VANCOMYCIN 1 GM (PMX) 250 ML IVPB (11:55)
[2019-04-20] MEDS: IBUPROFEN 800 MG TAB PO (11:55)
[2019-04-20 13:47] LABS: ADD UMIC YES; UR ASCORBIC ACID NEGATIVE (NEGATIVE); UR BILIRUBIN (Dip) NEGATIVE (NEGATIVE); UR BLOOD (Dip) 3+ mg/dL (NEGATIVE); UR CLARITY CLOUDY (CLEAR); UR COLOR RED (YELLOW); UR GLUCOSE (Dip) NEGATIVE (NEGATIVE); UR KETONES (Dip) NEGATIVE (NEGATIVE); UR LEUKOCYTE ESTERASE (Dip) 1+ Leu/ul (NEGATIVE); UR NITRITE (Dip) NEGATIVE (NEGATIVE); UR RBC > 182 /HPF (0-5); UR SPECIFIC GRAVITY (Dip) 1.013 (1.003-1.030); UR TOTAL PROTEIN (Dip) 2+ mg/dl (NEGATIVE); UR UROBILINOGEN (Dip) NEGATIVE (NEGATIVE); UR WBC 102 /HPF (0-5)
[2019-04-20] MEDS ORDERED: ONDANSETRON 4 MG INJ IV ×2 (14:30→16:30)
[2019-04-20] MEDS: SOD CHLORIDE 0.9% 1,000 ML IV ×2 (15:16→18:31)
[2019-04-20] MEDS ORDERED: MAGNESIUM HYDROXIDE 30ML CUP PO (16:30)
[2019-04-20] MEDS ORDERED: ZOLPIDEM 5 MG TAB PO (16:30)
[2019-04-20] MEDS ORDERED: LOPERAMIDE 2 MG CAP PO (16:30)
[2019-04-20] MEDS ORDERED: IBUPROFEN 400 MG TAB PO (16:30)
[2019-04-20] MEDS ORDERED: NACL 0.9% 3 ML SYG IV (16:30)
[2019-04-20 16:53] LABS: LACTIC ACID 1.1 mmol/L (0.5-2.0)
[2019-04-20] MEDS ORDERED: VANCOMYCIN IV PER PHARMACY XX (18:30)
[2019-04-20] MEDS: VANCOMYCIN 500 MG (PMX) 100 ML IVPB (18:31)
[2019-04-20 19:40] LABS: LACTIC ACID 1.6 mmol/L (0.5-2.0)
[2019-04-20] MEDS ORDERED: NITROFURANTOIN (SR) 100 MG CAP PO (21:00)
[2019-04-20] MEDS: FAMOTIDINE 20 MG INJ IV (21:34)
[2019-04-20] MEDS: CLOTRIMAZOLE 1% 30 GM CR TOP (21:34)
[2019-04-20] MEDS: MYCOPHENOLATE 250 MG CAP PO (21:35)
[2019-04-20] MEDS: ATORVASTATIN 40 MG TAB PO (21:36)
[2019-04-21] MEDS: SOD CHLORIDE 0.9% 1,000 ML IV ×3 (05:50→23:29)
[2019-04-21 08:00] LABS: ADD MAN DIFF? NO
[2019-04-21 08:10] LABS: ABNORMAL IP MESSAGE 1; BASOPHIL # 0.1 10^3/ul (0.0-0.1); BASOPHILS % 0.4 % (0.0-2.0); EOSINOPHILS # 0.1 10^3/ul (0.0-0.5); EOSINOPHILS % 0.8 % (0.0-7.0); HEMATOCRIT 33.8 % (42.0-52.0); HEMOGLOBIN 9.8 g/dl (14.0-18.0); LYMPHOCYTES # 0.3 10^3/ul (0.8-2.9); LYMPHOCYTES % 2.2 % (15.0-51.0); MEAN CORPUSCULAR HEMOGLOBIN 31.3 pg (29.0-33.0); MEAN PLATELET VOLUME 10.6 fl (7.4-10.4); MONOCYTE # 0.9 10^3/ul (0.3-0.9); MONOCYTES % 6.1 % (0.0-11.0); NEUTROPHIL # 13.8 10^3/ul (1.6-7.5); PLATELET COUNT 279 10^3/UL (140-415); POSITIVE DIFF @See below; RED BLOOD COUNT 3.13 10^6/ul (4.70-6.10); RED CELL DISTRIBUTION WIDTH 17.5 % (11.5-14.5)
[2019-04-21 08:10] LABS: WHITE BLOOD COUNT 15.3 10^3/ul (4.8-10.8)
[2019-04-21 08:28] LABS: ALANINE AMINOTRANSFERASE 17 IU/L (13-69); ALBUMIN 2.9 g/dl (3.3-4.9); ALBUMIN/GLOBULIN RATIO 1.03; ALKALINE PHOSPHATASE 47 IU/L (42-121); ANION GAP 8 (5-13); ASPARTATE AMINO TRANSFERASE 21 IU/L (15-46); BILIRUBIN,INDIRECT 0.5 mg/dl (0-1.1); BILIRUBIN,TOTAL 0.5 mg/dl (0.2-1.3); BLOOD UREA NITROGEN 44 mg/dl (7-20); CALCIUM 8.4 mg/dl (8.4-10.2); CARBON DIOXIDE 15 mmol/L (21-31); CHLORIDE 118 mmol/L (97-110); CREATININE 2.95 mg/dl (0.61-1.24); GLUCOSE 84 mg/dl (70-220); POTASSIUM 4.5 mmol/L (3.5-5.1); SODIUM 141 mmol/L (135-144); TOTAL PROTEIN 5.7 g/dl (6.1-8.1)
[2019-04-21] MEDS ORDERED: predniSONE 5 MG TAB PO (09:00)
[2019-04-21] MEDS: CLOTRIMAZOLE 1% 30 GM CR TOP ×2 (09:06→20:49)
[2019-04-21] MEDS: MYCOPHENOLATE 250 MG CAP PO ×3 (09:06→17:02)
[2019-04-21] MEDS: predniSONE 5 MG TAB PO (17:02)
[2019-04-21] MEDS: FAMOTIDINE 20 MG INJ IV (20:49)
[2019-04-21] MEDS: ATORVASTATIN 40 MG TAB PO (20:49)
[2019-04-22 06:09] LABS: VANCOMYCIN,RANDOM 6.4 ug/ml
[2019-04-22] MEDS: CLOTRIMAZOLE 1% 30 GM CR TOP ×2 (09:23→20:27)
[2019-04-22] MEDS: MYCOPHENOLATE 250 MG CAP PO ×3 (09:23→20:27)
[2019-04-22] MEDS: predniSONE 5 MG TAB PO (09:23)
[2019-04-22] MEDS: VANCOMYCIN HCL 1.5 GM in SOD CHLORIDE 0.9% 250 ML IVPB (12:26)
[2019-04-22] MEDS: FAMOTIDINE 20 MG INJ IV (20:27)
[2019-04-22] MEDS: ATORVASTATIN 40 MG TAB PO (20:27)
[2019-04-22] MEDS: SOD CHLORIDE 0.9% 1,000 ML IV (20:33)
[2019-04-23 05:54] LABS: ADD MAN DIFF? NO
[2019-04-23 06:00] LABS: BASOPHIL # 0.1 10^3/ul (0.0-0.1); BASOPHILS % 0.7 % (0.0-2.0); EOSINOPHILS # 0.2 10^3/ul (0.0-0.5); EOSINOPHILS % 1.8 % (0.0-7.0); HEMOGLOBIN 9.4 g/dl (14.0-18.0); LYMPHOCYTES # 0.8 10^3/ul (0.8-2.9); LYMPHOCYTES % 9.4 % (15.0-51.0); MEAN CORPUSCULAR HEMOGLOBIN 31.5 pg (29.0-33.0); MEAN CORPUSCULAR HGB CONC 30.3 g/dl (32.0-37.0); MEAN PLATELET VOLUME 10.5 fl (7.4-10.4); MONOCYTE # 0.8 10^3/ul (0.3-0.9); MONOCYTES % 9.4 % (0.0-11.0); NEUTROPHIL # 6.8 10^3/ul (1.6-7.5); NEUTROPHILS % 78.1 % (39.0-77.0); NUCLEATED RED BLOOD CELLS% 0.3 /100WBC (0.0-0.0); PLATELET COUNT 231 10^3/UL (140-415); RED BLOOD COUNT 2.98 10^6/ul (4.70-6.10); RED CELL DISTRIBUTION WIDTH 16.8 % (11.5-14.5)
[2019-04-23 06:00] LABS: WHITE BLOOD COUNT 8.7 10^3/ul (4.8-10.8)
[2019-04-23 06:38] LABS: ALANINE AMINOTRANSFERASE 23 IU/L (13-69); ALBUMIN 2.8 g/dl (3.3-4.9); ALKALINE PHOSPHATASE 52 IU/L (42-121); ANION GAP 8 (5-13); ASPARTATE AMINO TRANSFERASE 20 IU/L (15-46); BILIRUBIN,INDIRECT 0.3 mg/dl (0-1.1); BILIRUBIN,TOTAL 0.3 mg/dl (0.2-1.3); BLOOD UREA NITROGEN 39 mg/dl (7-20); CALCIUM 8.4 mg/dl (8.4-10.2); CARBON DIOXIDE 15 mmol/L (21-31); CHLORIDE 120 mmol/L (97-110); CREATININE 2.83 mg/dl (0.61-1.24); GLUCOSE 91 mg/dl (70-220); POTASSIUM 4.4 mmol/L (3.5-5.1); SODIUM 143 mmol/L (135-144); TOTAL PROTEIN 5.6 g/dl (6.1-8.1)
[2019-04-23 07:28] LABS: C-REACTIVE PROTEIN 5.3 mg/dl (0.0-0.9)
[2019-04-23] MEDS: predniSONE 5 MG TAB PO (08:27)
[2019-04-23] MEDS: CLOTRIMAZOLE 1% 30 GM CR TOP ×2 (08:28→20:29)
[2019-04-23] MEDS: MYCOPHENOLATE 250 MG CAP PO ×3 (09:00→20:27)
[2019-04-23 10:08] LABS: IRON 19 ug/dl (35-150)
[2019-04-23 10:22] LABS: % IRON SATURATION 8 % SAT (22-52); TOTAL IRON BINDING CAPACITY 232 ug/dl (241-421)
[2019-04-23] MEDS: SOD CHLORIDE 0.9% 1,000 ML IV (11:10)
[2019-04-23] MEDS: FLUCONAZOLE 100 MG TAB PO (12:16)
[2019-04-23 13:02] LABS: FOLATE 8.3 ng/ml (2.8-20.0)
[2019-04-23] MEDS: ATORVASTATIN 40 MG TAB PO (20:26)
[2019-04-23] MEDS: FAMOTIDINE 20 MG TAB PO (20:27)
[2019-04-23] MEDS: VANCOMYCIN 1.25 GM/NS 250 ML 250 ML IVPB (21:55)
[2019-04-23] MEDS ORDERED: VANCOMYCIN 1.25 GM/NS 250 ML 250 ML IVPB (22:00)
[2019-04-24 05:48] LABS: ADD MAN DIFF? NO
[2019-04-24 05:57] LABS: WHITE BLOOD COUNT 8.4 10^3/ul (4.8-10.8)
[2019-04-24 05:57] LABS: BASOPHIL # 0.1 10^3/ul (0.0-0.1); BASOPHILS % 0.6 % (0.0-2.0); EOSINOPHILS # 0.2 10^3/ul (0.0-0.5); EOSINOPHILS % 2.5 % (0.0-7.0); HEMATOCRIT 34.4 % (42.0-52.0); HEMOGLOBIN 10.3 g/dl (14.0-18.0); LYMPHOCYTES # 0.9 10^3/ul (0.8-2.9); LYMPHOCYTES % 10.6 % (15.0-51.0); MEAN CORPUSCULAR HEMOGLOBIN 31.5 pg (29.0-33.0); MEAN CORPUSCULAR HGB CONC 29.9 g/dl (32.0-37.0); MEAN CORPUSCULAR VOLUME 105.2 fl (82.0-101.0); MEAN PLATELET VOLUME 10.9 fl (7.4-10.4); MONOCYTE # 0.8 10^3/ul (0.3-0.9); MONOCYTES % 9.1 % (0.0-11.0); NEUTROPHIL # 6.4 10^3/ul (1.6-7.5); NEUTROPHILS % 76.5 % (39.0-77.0); NUCLEATED RED BLOOD CELLS% 0.4 /100WBC (0.0-0.0); PLATELET COUNT 261 10^3/UL (140-415); RED BLOOD COUNT 3.27 10^6/ul (4.70-6.10)
[2019-04-24 06:29] LABS: ALANINE AMINOTRANSFERASE 21 IU/L (13-69); ALKALINE PHOSPHATASE 59 IU/L (42-121); ANION GAP 7 (5-13); ASPARTATE AMINO TRANSFERASE 20 IU/L (15-46); BILIRUBIN,INDIRECT 0.4 mg/dl (0-1.1); BILIRUBIN,TOTAL 0.4 mg/dl (0.2-1.3); BLOOD UREA NITROGEN 35 mg/dl (7-20); CALCIUM 8.6 mg/dl (8.4-10.2); CARBON DIOXIDE 16 mmol/L (21-31); CHLORIDE 118 mmol/L (97-110); CREATININE 2.82 mg/dl (0.61-1.24); GLUCOSE 93 mg/dl (70-220); POTASSIUM 4.6 mmol/L (3.5-5.1); SODIUM 141 mmol/L (135-144)
[2019-04-24] MEDS: predniSONE 5 MG TAB PO (08:14)
[2019-04-24] MEDS: MYCOPHENOLATE 250 MG CAP PO ×2 (08:14→12:01)
[2019-04-24] MEDS: FLUCONAZOLE 100 MG TAB PO (08:15)
[2019-04-24] MEDS: CLOTRIMAZOLE 1% 30 GM CR TOP (08:16)
[2019-04-24] MEDS: BARIUM SULF 2% 450 ML BTL (BERRY SMOOTHIE) PO (09:00)
[2019-04-24] MEDS ORDERED: HYDROCORTISONE 25 MG SUPP PR (09:00)
[2019-04-24] MEDS: HYDROCORTISONE 25 MG SUPP PR (12:02)
[2019-04-25] MEDS ORDERED: CIPROFLOXACIN 500 MG TAB PO (06:00)
== END 2019-04-24 19:36 | disposition home health service (06) | DRG 872 ==
LOC: E/R 10:33 → 6WM 15:46
PROVIDERS: Internal Medicine
DX: A41.9 Sepsis, unspecified organism (principal); N13.1 Hydronephrosis with ureteral stricture, not elsewhere classified; L40.50 Arthropathic psoriasis, unspecified; N18.3 Chronic kidney disease, stage 3 (moderate); E78.5 Hyperlipidemia, unspecified; D50.9 Iron deficiency anemia, unspecified; I25.10 Atherosclerotic heart disease of native coronary artery without angina pectoris; I12.9 Hypertensive chronic kidney disease with stage 1 through stage 4 chronic kidney disease, or unspecified chronic kidney disease; N48.1 Balanitis; B95.8 Unspecified staphylococcus as the cause of diseases classified elsewhere; R65.20 Severe sepsis without septic shock; Z87.891 Personal history of nicotine dependence; Z93.3 Colostomy status; Z85.048 Personal history of other malignant neoplasm of rectum, rectosigmoid junction, and anus; Z85.51 Personal history of malignant neoplasm of bladder
CPT/HCPCS: 36415; 71045; 72192; 74176; 80053; 80202; 81001; 82150; 82607; 82746; 83540; 83605; 83690; 84484; 85025; 85610; 85651; 85730; 86140; 87040-91; 87086; 87400; 88104; 93005; 96374; 96375; 97161; 97167; 99285-25